=== PATIENT | female | born 1970 | race African-American/Black ===

== ENCOUNTER 2016-11-25 19:01 | Emergency (ER) | payer MEDICAID ==
[~2016-11-25] VITALS: Ht 162.6 cm; Wt 83.0 kg
[2016-11-25 20:30] VITALS: BP 120/80
== END 2016-11-25 20:40 | disposition home or self-care (01) ==
LOC: ER 19:10
DX: R11.0 Nausea (principal); I10 Essential (primary) hypertension; F17.200 Nicotine dependence, unspecified, uncomplicated
CPT/HCPCS: 93005; 99283